=== PATIENT | male | born 1940 | race Caucasian/White ===

== ENCOUNTER 2018-06-05 06:45 | Day surgery (SDC) | payer MEDICARE ==
[2018-06-05] VITALS (10 sets, daily range): BP systolic 75–141; BP diastolic 16–58
[~2018-06-05] VITALS: Ht 190.5 cm; Wt 81.6 kg
[~2018-06-05 06:45] MED LIST: AEC81 PO; ATOR10TA69 PO; BISM262T18 PO; CALC500T13 PO; ERGO400T7 PO; ESOM20TA PO; FINA5TAB41 PO; IPRA4AER IH; LOSA25TA16 PO; MELA5CAP PO; OMEP40CA37 PO; SENN1TAB6 PO; SODIUM CHLORIDE 0.9% 1000ML 1,000 ML IV ONE; TAMS0.4C32 PO; TRAZ-185 PO
[2018-06-05] MEDS ORDERED: PROPOFOL 10 MG/ML 20ML VIAL IV ONE ×2 (08:08)
[2018-06-05] MEDS ORDERED: GLYCOPYRROLATE 0.2 MG/ML 5 ML VIAL ONE (08:34)
[2018-06-05] MEDS ORDERED: PHENYLEPHRINE HCL 10 MG/ML 1ML VIAL IV ONE (08:35)
== END 2018-06-05 09:05 | disposition home or self-care (01) ==
LOC: ENDO 06:45 → DAH 06:45 → ENDO 09:05
PROVIDERS: ATTEND Internal Medicine
DX: K80.20 Calculus of gallbladder without cholecystitis without obstruction (principal); K31.89 Other diseases of stomach and duodenum; Z98.49 Cataract extraction status, unspecified eye; Z98.890 Other specified postprocedural states; N40.0 Benign prostatic hyperplasia without lower urinary tract symptoms; M19.90 Unspecified osteoarthritis, unspecified site; I10 Essential (primary) hypertension; Z86.73 Personal history of transient ischemic attack (TIA), and cerebral infarction without residual deficits; Z85.828 Personal history of other malignant neoplasm of skin; K21.9 Gastro-esophageal reflux disease without esophagitis; E78.5 Hyperlipidemia, unspecified; Z88.0 Allergy status to penicillin
CPT/HCPCS: 43237; 43239; 88305; 93005; A4606; J2370; J2704 ×2; J3490; J7030; 43231

== ENCOUNTER → 2020-02-17 | Outpatient (CLI) | payer MEDICARE | END | disposition home or self-care (01) | LOC: RAH 12:28 | PROVIDERS: ATTEND Podiatrist | DX: M20.12 Hallux valgus (acquired), left foot (principal); M19.072 Primary osteoarthritis, left ankle and foot; I73.89 Other specified peripheral vascular diseases ==